=== PATIENT | male | born 1940 | race Caucasian/White ===

== ENCOUNTER 2016-10-16 18:15 | Observation (INO) | payer MEDICARE ==
[2016-10-16 19:14] LABS: Hematocrit 45 % (42-52); Hemoglobin 15.1 g/dl (14.0-18.0); Mean Corpuscular HGB Conc 34 g/dl (31-36); Mean Corpuscular Hemoglobin 32 pg (27-31); Mean Corpuscular Volume 95 fL (80-94); Mean Platelet Volume 7 um3 (7.4-10.4); Red Blood Count 4.69 10^6/ul (4.0-5.4); Red Cell Distribution Width 14 % (10.5-15); White Blood Count 9.3 10^3/ul (3.5-10.8)
[2016-10-16 19:27] LABS: Albumin 3.9 g/dL (3.2-5.2); BUN/Creatinine Ratio 13.6 (8-20); Calcium 8.9 mg/dL (8.6-10.3); EGFR African American 119.8 (>60); EGFR Non-African American 93.2 (>60); Globulin 2.5 g/dL (2-4); Magnesium 1.9 mg/dL (1.9-2.7); Potassium 3.7 mmol/L (3.5-5.0); Total Bilirubin 0.6 mg/dL (0.2-1.0); Total Protein 6.4 g/dL (6.4-8.9)
[2016-10-16 19:32] LABS: Troponin I 0.04 ng/mL (<0.04)
--- NOTE | 2016-10-16 19:57 | RAD ---
INDICATION: Syncope. COMPARISON: There are no prior studies available for comparison. TECHNIQUE: Contiguous axial sections of the brain were obtained from the skull base to the vertex without contrast. FINDINGS: The ventricles, cisterns and sulci are within normal limits. No significant focal abnormality or mass effect is seen. There is no evidence for hemorrhage. No fracture is seen. There is opacification of the left frontal sinus. The visualized portion of the paranasal sinuses and mastoid air cells otherwise appear clear. IMPRESSION: NO EVIDENCE FOR ACUTE INTRACRANIAL ABNORMALITY.
[2016-10-16 20:02] LABS: TSH (Thyroid Stimulating Horm) 1.8 mcIU/mL (0.34-5.60)
[2016-10-16 20:10] LABS: Urine Bilirubin Negative (Negative); Urine Glucose Negative (Negative); Urine Nitrite Negative (Negative)
[2016-10-16] MEDS ORDERED: Acetaminophen TAB* 325 MG PO PRN (20:15)
[2016-10-16] MEDS ORDERED: Melatonin (NF) 3 MG TAB PO PRN (20:18)
[2016-10-16] MEDS ORDERED: Aspirin Low Dose CHEW TAB* 81 MG PO ONE (20:19)
[2016-10-16] MEDS ORDERED: NS 0.9% 1000 ML* 1,000 ML IV SCH (20:30)
[2016-10-16] MEDS ORDERED: Ondansetron INJ* 2 MG/ML VIAL IV PRN (20:40)
--- NOTE | 2016-10-16 20:51 | ED ---
Rain Morin Anna, scribed for Leif Luke MD on 10/16/16 at 1829 . Syncope/Near Syncope - HPI Summary HPI Summary: Patient is a 76 y/o male BIBA to [facility] following the sudden onset of a syncopal episode that occurred at 1730 this evening. The patient had been blowing snow when he took a break and was sitting in a chair. He remembers bending over to try to put spikes on his shoes, and remembers feeling like he wasnt able to move his body like he wanted to. He does not remember falling down, and the incident was unwitnessed. The patient was found on his side on the floor and had slurred, confused speech. His right hand was shaking. The symptoms resolved within 5 minutes. At this point, the patient reports that he feels a little fuzzy. He denies current CP, lightheadedness, or dizziness. A few months ago, he had a stress test and wore a monitor. He reports his balance is decreased when the lights are out and that he has had occasional episodes of limited balance lately. - History Of Current Complaint Time Seen by Provider: 10/16/16 18:27 Hx Obtained From: Patient, Family/Ribbon Blocker - Accompanied by and brother Onset/Duration: Sudden Onset, Resolved Context: Unwitnessed, Loss Of Consciousness Activity At Onset: Other - Bent over in a low chair Associated Head Trauma: No - Allergies/Home Medications Allergies/Adverse Reactions: Allergies Allergy/AdvReac Type Severity Reaction Status Date / Time Iodinated Diagnostic Agents Allergy Hives Verified 10/16/16 20:34 PMH/Surg Hx/FS Hx/Imm Hx Endocrine/Hematology History: Denies: Hx Diabetes Cardiovascular History: Reports: Hx Hypertension Denies: Hx Myocardial Infarction Respiratory History: Denies: Hx Chronic Obstructive Pulmonary Disease (COPD) Infectious Disease History: Denies: Traveled Outside the [place] in Last 30 Days - Family History Known Family History: Positive: Diabetes - Hx Mother, Other - Hx lung CA in mother - Social History Occupation: Retired Lives: With Family Alcohol Use: Daily Alcohol Amount: 2-3 beers/day Hx Substance Use: No Substance Use Type: Reports: None Hx Tobacco Use: Yes Type: Cigarettes Review of Systems Negative: Chest Pain Neurological: Other - Confusion, resolved. Shaking hand, resolved. Now feels "a little fuzzy." Denies lightheadedness, dizziness. Positive: Syncope, Slurred Speech All Other Systems Reviewed And Are Negative: Yes Physical Exam Triage Information Reviewed: Yes Vital Signs On Initial Exam: Temp Pulse Resp BP Pulse Ox 98.9 F 84 19 142/87 97 10/16/16 18:24 10/16/16 18:30 10/16/16 18:30 10/16/16 18:30 10/16/16 18:30 Vital Signs Reviewed: Yes Appearance: Positive: Well-Appearing, No Pain Distress Skin: Positive: Warm, Skin Color Reflects Adequate Perfusion, Dry Head/Face: Positive: Normal Head/Face Inspection Eyes: Positive: Normal ENT: Positive: Normal ENT inspection Neck: Positive: Supple, Nontender Respiratory/Lung Sounds: Positive: Clear to Auscultation, Breath Sounds Present Cardiovascular: Positive: RRR, Other - Right carotid bruit Abdomen Description: Positive: Nontender, Soft Bowel Sounds: Positive: Present Musculoskeletal: Positive: Normal Neurological: Positive: Normal Psychiatric: Positive: Affect/Mood Appropriate Diagnostics - Vital Signs Vital Signs Temp Pulse Resp BP Pulse Ox 10/16/16 19:30 82 18 127/80 96 10/16/16 19:00 80 20 143/87 96 10/16/16 18:52 83 10/16/16 18:30 84 19 142/87 97 10/16/16 18:26 87 20 151/84 97 10/16/16 18:24 98.9 F 82 16 151/84 97 - Laboratory Lab Results: Lab Results 10/16/16 10/16/16 10/16/16 Range/Units 19:00 19:00 19:00 WBC 9.3 (3.5-10.8) 10^3/ul RBC 4.69 (4.0-5.4) 10^6/ul Hgb 15.1 (14.0-18.0) g/dl Hct 45 (42-52) % MCV 95 H (80-94) fL MCH 32 H (27-31) pg MCHC 34 (31-36) g/dl RDW 14 (10.5-15) % Plt Count 225 (150-450) 10^3/ul MPV 7 L (7.4-10.4) um3 Neut % (Auto) 75.1 (38-83) % Lymph % (Auto) 12.8 L (25-47) % [place] % (Auto) 9.6 H (1-9) % Eos % (Auto) 1.4 (0-6) % Baso % (Auto) 1.1 (0-2) % Absolute Neuts (auto) 7.0 (1.5-7.7) 10^3/ul Absolute Lymphs (auto) 1.2 (1.0-4.8) 10^3/ul Absolute Monos (auto) 0.9 H (0-0.8) 10^3/ul Absolute Eos (auto) 0.1 (0-0.6) 10^3/ul Absolute Basos (auto) 0.1 (0-0.2) 10^3/ul Absolute Nucleated RBC 0 10^3/ul Nucleated RBC % 0 Sodium 136 (133-145) mmol/L Potassium 3.7 (3.5-5.0) mmol/L Chloride 105 (101-111) mmol/L Carbon Dioxide 24 (22-32) mmol/L Anion Gap 7 (2-11) mmol/L BUN 11 (6-24) mg/dL Creatinine 0.81 (0.67-1.17) mg/dL Est GFR ( Amer) 119.8 (>60) Est GFR (Non-Af Amer) 93.2 (>60) BUN/Creatinine Ratio 13.6 (8-20) Glucose 82 (70-100) mg/dL Lactic Acid 0.8 (0.5-2.0) mmol/L Calcium 8.9 (8.6-10.3) mg/dL Magnesium 1.9 (1.9-2.7) mg/dL Total Bilirubin 0.60 (0.2-1.0) mg/dL AST 23 (13-39) U/L ALT 26 (7-52) U/L Alkaline Phosphatase 56 (34-104) U/L Troponin I 0.04 H* (<0.04) ng/mL Total Protein 6.4 (6.4-8.9) g/dL Albumin 3.9 (3.2-5.2) g/dL Globulin 2.5 (2-4) g/dL Albumin/Globulin Ratio 1.6 (1-3) TSH 1.80 (0.34-5.60) mcIU/mL Urine Color Urine Appearance Urine pH (5-9) Ur Specific [place] (1.010-1.030) Urine Protein (Negative) Urine Ketones (Negative) Urine Blood (Negative) Urine Nitrate (Negative) Urine Bilirubin (Negative) Urine Urobilinogen (Negative) Ur Leukocyte Esterase (Negative) Urine Glucose (Negative) 10/16/16 Range/Units 20:00 WBC (3.5-10.8) 10^3/ul RBC (4.0-5.4) 10^6/ul Hgb (14.0-18.0) g/dl Hct (42-52) % MCV (80-94) fL MCH (27-31) pg MCHC (31-36) g/dl RDW (10.5-15) % Plt Count (150-450) 10^3/ul MPV (7.4-10.4) um3 Neut % (Auto) (38-83) % Lymph % (Auto) (25-47) % [place] % (Auto) (1-9) % Eos % (Auto) (0-6) % Baso % (Auto) (0-2) % Absolute Neuts (auto) (1.5-7.7) 10^3/ul Absolute Lymphs (auto) (1.0-4.8) 10^3/ul Absolute Monos (auto) (0-0.8) 10^3/ul Absolute Eos (auto) (0-0.6) 10^3/ul Absolute Basos (auto) (0-0.2) 10^3/ul Absolute Nucleated RBC 10^3/ul Nucleated RBC % Sodium (133-145) mmol/L Potassium (3.5-5.0) mmol/L Chloride (101-111) mmol/L Carbon Dioxide (22-32) mmol/L Anion Gap (2-11) mmol/L BUN (6-24) mg/dL Creatinine (0.67-1.17) mg/dL Est GFR ( Amer) (>60) Est GFR (Non-Af Amer) (>60) BUN/Creatinine Ratio (8-20) Glucose (70-100) mg/dL Lactic Acid (0.5-2.0) mmol/L Calcium (8.6-10.3) mg/dL Magnesium (1.9-2.7) mg/dL Total Bilirubin (0.2-1.0) mg/dL AST (13-39) U/L ALT (7-52) U/L Alkaline Phosphatase (34-104) U/L Troponin I (<0.04) ng/mL Total Protein (6.4-8.9) g/dL Albumin (3.2-5.2) g/dL Globulin (2-4) g/dL Albumin/Globulin Ratio (1-3) TSH (0.34-5.60) mcIU/mL Urine Color Yellow Urine Appearance Clear Urine pH 5.0 (5-9) Ur Specific [place] 1.015 (1.010-1.030) Urine Protein Negative (Negative) Urine Ketones 1+ H (Negative) Urine Blood Negative (Negative) Urine Nitrate Negative (Negative) Urine Bilirubin Negative (Negative) Urine Urobilinogen Negative (Negative) Ur Leukocyte Esterase Negative (Negative) Urine Glucose Negative (Negative) Result Diagrams: 10/16/16 19:00 10/16/16 19:00 Lab Statement: Any lab studies that have been ordered have been reviewed, and results considered in the medical decision making process. - CT Brain CT CT Interpretation: No Acute Changes CT Interpretation Completed By: Radiologist - IMPRESSION: NO EVIDENCE FOR ACUTE INTRACRANIAL ABNORMALITY. - EKG 1825 Cardiac Rate: NL - 87 bpm EKG Rhythm: Sinus Rhythm ST Segment: Normal Ectopy: None EKG Interpretation: LVH Re-Evaluation - Re-Evaluation First Eval Re-Evaluation Time: 20:07 Change: Unchanged Comment: Patient confirms that he has had many episodes of being off-balance lately. Discussed results and plan of care with patient and family. Patient and family are agreeable to plan. Course/Dx Course Of Treatment: Mr. Ochoa had a worrisome syncopal episode tonight and , although seemingly stable now, I thing he should be admitted overnight. I am also concerned that he may have vertebral insufficiency and ASCVD. - Diagnoses Provider Diagnoses: Syncope - Physician Notifications Discussed Care Of Patient With: Dr. Cerda (neurologist) at 1908. He recommended the patient have a CT. Dr. Shaw (hospitalist) at 2007. He accepts the patient for admission. - Critical Care Time Critical Care Time: 30-74 min Discharge - Discharge Plan Condition: Stable Disposition: ADMITTED TO [facility] Referrals: Eddie Lopez MD [Primary Care Provider] - The documentation as recorded by the Rain kaiser Anna accurately reflects the service I personally performed and the decisions made by me, Leif Luke MD.
--- NOTE | 2016-10-16 23:19 | HP ---
HISTORY AND PHYSICAL: DATE OF ADMISSION: 10/16/16 PRIMARY CARE PROVIDER: Dr. Lopez. MY ATTENDING PHYSICIAN WHILE IN THE HOSPITAL: Dr. Rafael Shaw* (report being dictated by Dom Topete NP). CHIEF COMPLAINT: Syncope. HISTORY OF PRESENT ILLNESS: Mr. Ochoa is a 76-year-old male patient who is relatively healthy. He has a history of diet-controlled hypertension, hyperlipidemia, follows up also with Dr. Lopez for this. He comes in today stating that he was going outside to snow blow his driveway. He went to lean forward, putting on his boots and that was the last thing he remembers. The next thing he remembers he was upset because there was a group of men from EMS and family standing around him urging him to go to the hospital and he felt that he did not need all these people. He states that prior to this event and after the event, he had no chest pain, he had no shortness of breath, he did not feel lightheaded or dizzy. He states that he again was leaning forward on a chair, putting boots on, the went to go get something and she came back upstairs and found him on the floor, lying on his side. She tried to arouse him. He did not respond initially. He was maybe out for 3 to 4 minutes. The patient's son was summoned and he was trying to speak with his father. At first , he was speaking what the son described as gibberish, he was not making sense. He slowly started coming around and tried making more sense after discussing with the father. At that point, by the time he started making more sense, the EMS was already at the house and the patient was brought in to the hospital. There has been no recent change in medication. In fact, he is not on any medication. Denied having any recent cough, chills, or fevers. Denied having any abdominal pain or any recent nausea or vomiting. The patient was evaluated in the ER, it was noted the troponin was 0.04 and because of the syncopal episode, the hospitalist service was asked to evaluate for admission. PAST MEDICAL HISTORY: Significant for: 1. Hyperlipidemia. 2. Hypertension. 3. Arthritis. PAST SURGICAL HISTORY: He has had an appendectomy and tonsillectomy. HOME MEDICATIONS: Denied. ALLERGIES TO MEDICATIONS: Include IV DYE. FAMILY HISTORY: His mother had adenocarcinoma. Father at the age of 91. SOCIAL HISTORY: He does not smoke. He does drink about 2 beers a day. He exercises almost on a daily basis. Surrogate decision maker is his . REVIEW OF SYSTEMS: There is no documented fever. He denied having any significant weight change. There was no double vision. There is no ear discharge. There is no rhinorrhea. There is no sore throat. No thyroid enlargement. Denies having any chest pain. There is no orthopnea, there is no nocturnal dyspnea. There is no abdominal pain. There was no nausea, no vomiting. No dysuria, no frequency. No loss of consciousness. No pruritus and no skin ulcerations. Review of 14 systems completed, all others negative. PHYSICAL EXAMINATION GENERAL: At this time, Mr. Ochoa is a 76-year-old male patient. He appears well nourished, well developed. He does not appear to be in any acute distress. He is sitting in the ER stretcher. VITAL SIGNS: Reveal blood pressure 127/80, pulse 81, respirations 18, O2 sat 96 %, temperature 98.9. HEENT: Head: Atraumatic, normocephalic. Eyes: EOMs are intact. Sclerae are anicteric and not pale. Throat: Oral mucosa appears to be moist. No oropharyngeal erythema. NECK: Supple. LUNGS: Clear to auscultation bilaterally. No wheezes, rales, or rhonchi. HEART: Sounds S1, S2. Regular rate and rhythm. No murmurs, rubs, or gallops. ABDOMEN: Soft, it was flat, nontender. Bowel sounds present. EXTREMITIES: Pulses were 2+ throughout. He is able to move all 4 extremities with 5/5 strength. NEUROLOGIC: He is awake, he is alert, he is oriented x3. Tongue midline. Supervisor Fertilizer equal. No gross focal deficits. Cranial nerves II through XII were intact. SKIN: Intact. DIAGNOSTIC STUDIES/LAB DATA: Labs today revealed WBC 9.3, RBC 4.69, hemoglobin 15.1, hematocrit 45, platelet count 225. Sodium 136, potassium of 3.7, chloride of 105, bicarb 24, BUN 11, creatinine 0.81, glucose 82, lactate 1.8, calcium 8.9, mag 1.9. Total bili 0.6, AST 23, ALT 26, alk phos 56. Troponin 0.04. Albumin is 3.9. TSH 1.80. Urine showed 1+ ketones. He had a brain CT, which showed no evidence for acute intracranial abnormalities. There was an EKG obtained today. There was no previous EKG for comparison, but it does show a normal sinus rhythm. It looks like he had ST elevation in V1. J -point elevation appears to be in V2. There is no other elevation noted. He had flat T waves in lead III. We have no previous EKGs noted for comparison. Old medical records reviewed. ASSESSMENT AND PLAN: Mr. Ochoa is a 76-year-old male patient coming into the ER today with complaints of a syncopal episode. Hospitalist service was asked to evaluate for admission. He will be admitted under observation status for: 1. Syncope: Etiology is unclear. He did have a workup, I believe, just 4 months ago according to the patient; however, today the episode happened, it seemed to be unprovoked. He was leaning forward. He did have a carotid bruit on exam. I think, at this point, we will go ahead and get an echo, carotid ultrasound, telemetry, orthostatic blood pressures, cycle his troponin. I did put him on a small aspirin, he is not having any chest pain now and we will continue to follow. 2. Hyperlipidemia: Continue lifestyle modifications. 3. Hypertension: We will continue to monitor and continue lifestyle modification for the time being. 4. DVT prophylaxis: He is moderate risk and will be placed on heparin subcu. 5. Code status: He is full code. 6. Fluids, electrolytes, and nutrition: He can have a regular diet. TIME SPENT: On the admission was approximately 60 minutes, greater than half the time was spent [id number] with the patient, other half time was spent implementing the plan. I did discuss the admission plan with my attending, Dr. Shaw; he is in agreement. DOM TOPETE NP CC: Dr. Lopez* [id number]/[facility] #: [id number] MTDD
[2016-10-17 05:41] LABS: Hematocrit 42 % (42-52); Hemoglobin 14.5 g/dl (14.0-18.0); Mean Corpuscular HGB Conc 34 g/dl (31-36); Mean Corpuscular Hemoglobin 33 pg (27-31); Mean Corpuscular Volume 95 fL (80-94); Mean Platelet Volume 8 um3 (7.4-10.4); Red Blood Count 4.47 10^6/ul (4.0-5.4); Red Cell Distribution Width 13 % (10.5-15)
[2016-10-17 05:54] LABS: BUN/Creatinine Ratio 16.3 (8-20); Calcium 8.6 mg/dL (8.6-10.3); EGFR African American 96.2 (>60); EGFR Non-African American 74.8 (>60); Potassium 4.1 mmol/L (3.5-5.0)
[2016-10-17] MEDS ORDERED: Omeprazole CAP* 20 MG PO SCH (06:00)
[2016-10-17] MEDS: Heparin VIAL(*) 5000 UNITS/ML VIAL (FIVE THOUSAND) SUBCUT SCH ×2 (06:03→12:35)
[2016-10-17] MEDS ORDERED: Aspirin Low Dose CHEW TAB* 81 MG PO SCH (09:00)
--- NOTE | 2016-10-17 10:16 | RAD ---
INDICATION: Carotid stenosis COMPARISON: None TECHNIQUE: Transverse and longitudinal scans of the carotid and vertebral arteries were performed with garcia scale, color Doppler, and spectral Doppler imaging. Stenosis criteria is based on flow velocities that correlate with visual internal carotid artery diameter (NASCET criteria) FINDINGS: Right carotid: There is no significant plaque formation there is no spectral broadening. The peak systolic velocity of the internal carotid artery is 67 cm/s and the peak diastolic velocity 25 cm/s. The ICA/CCA ratio is calculated at 0.6. There is no stenosis. Left carotid: There is scant smooth plaque involving the bifurcation. There is no spectral broadening. The peak systolic velocity of the internal carotid artery is 84 cm/s and the peak diastolic velocity 23 cm/s. The ICA/CCA ratio is calculated at 0.7. This corresponds to a less than 50% diameter stenosis. The actual degree of stenosis is closer to 0. Right vertebral: Right vertebral waveforms are normal and the flow is antegrade. Left vertebral: Left vertebral waveforms are normal and the flow is antegrade Other: Incidental bilateral thyroid nodules which could be evaluated with follow-up sonography. IMPRESSION: NO EVIDENCE OF HEMODYNAMICALLY SIGNIFICANT STENOSIS . THERE ARE THYROID NODULES (see above). CPT II Codes: 3100F PQRS
--- NOTE | 2016-10-17 10:39 | ECHO ---
Patient: CARIN ANGLIN [facility] Rec#: [id number] : 1940 Date: 10/17/2016 Age: 76y Height: 167.6 cm / 66.0 in Weight: 74.8 kg / 164.9 lbs Sex: M BSA: 1.8 Room#: 453 Admit Date#: 10/16/2016 Type: Inpatient Referring: Rafael Shaw MD Reading: Genia Ramirez MD Desulfurizer Operator: Maribell Santacruz RN RDCS CC: Eddie Lopez MD Transthoracic Echocardiogram Indication: Syncope BP: 153/87 HR: 62 Rhythm: NSR Findings History: HTN, former smoker, prior testing for syncope in 2016, recent balance issues. Technical Comments: The study is technically limited due to the patient's smoking history. Completed at 0915. Left Ventricle: The left ventricular chamber size is normal. Mild to moderate concentric left ventricular hypertrophy is observed. Global left ventricular wall motion and contractility are within normal limits. There is normal left ventricular systolic function. The estimated ejection fraction is 50-55%. Abnormal left ventricular diastolic filling is observed, consistent with impaired relaxation. Left Atrium: The left atrium is slightly dilated. Right Ventricle: The right ventricular chamber size and systolic function are within normal limits. Right Atrium: The right atrial cavity size is normal. A prominent eustachian valve is noted in the right atrium. Aortic Valve: The aortic valve structure is not well visualized. The aortic valve leaflets are mildly thickened. There is aortic annular calcification. There is mild aortic regurgitation. There is no evidence of aortic stenosis. Mitral Valve: The mitral valve leaflets are mildly thickened. There is a trace of mitral regurgitation. There is no evidence of mitral stenosis. Tricuspid Valve: The tricuspid valve leaflets are normal. There is trace tricuspid regurgitation. Unable to estimate the right ventricular systolic pressure. Pulmonic Valve: The pulmonic valve structure is not well visualized. There is no evidence of pulmonic regurgitation. There is no pulmonic stenosis. Pericardium: There is no significant pericardial effusion. Aorta: There is no dilatation of the ascending aorta. The aortic arch is not well visualized. The aortic root is normal in size. Pulmonary Artery: The main pulmonary artery appears normal. Venous: The venous system is not well visualized. The inferior vena cava is not visualized. Conclusions Mild to moderate concentric left ventricular hypertrophy is observed. Global left ventricular wall motion and contractility are within normal limits. The estimated ejection fraction is 50-55%. Abnormal left ventricular diastolic filling is observed, consistent with impaired relaxation. The right ventricular chamber size and systolic function are within normal limits. There is mild aortic regurgitation with mild sclerosis. There is a trace of mitral regurgitation, mild leaflet thickening. There is trace tricuspid regurgitation. Compared with prior echo of 05/11/16, ventricular and valvular function are stable. Measurements Name Value Normal Range RVDdMajor (2D) 3.6 cm (2.2 - 4.4) RAd ISD 4CH 4.8 cm (3.4 - 4.9) RA (A4C)W 3.4 cm (2.9 - 4.6) IVSd (2D) 1.3 cm (0.6 - 1) LVPWd (2D) 1.3 cm (0.6 - 1) LVIDd (2D) 3.9 cm (3.6 - 5.4) LVIDs (2D) 3.2 cm - LV FS (2D) 19 % (25 - 45) Aortic Annulus 2.2 cm (1.4 - 2.6) Ao root diameter (2D) 3 cm (2.1 - 3.5) Ascending Ao 2.8 cm (2.1 - 3.4) Aortic arch 2.9 cm (1.8 - 3.4) LA dimension (AP) 2D 3.2 cm (2.3 - 3.8) LAd ISD 4CH 5.4 cm (2.9 - 5.3) LA ISD 4CH W 4.9 cm (2.5 - 4.5) Name Value Normal Range LA ESV SP 4CH (A/L) 59 ml - LA ESV SP 2CH (A/L) 54 ml - LA ESV BP (A/L) 58 ml - LA ESV BP (A/L) index 32 ml/m2 - LA ESV SP 4CH (MOD) 54 ml - LA ESV SP 2CH (MOD) 52 ml - Name Value Normal Range MV E-wave Vmax 0.52 m/sec - MV deceleration time 278 msec - MV A-wave Vmax 0.83 m/sec - MV E:A ratio 0.6 ratio - LV septal e' Vmax 0.07 m/sec - LV lateral e' Vmax 0.08 m/sec - LV E:e' septal ratio 7.4 ratio - LV E:e' lateral ratio 6.5 ratio - Name Value Normal Range AV Vmax 1.2 m/sec - LVOT Vmax 0.68 m/sec - JOSE Vmax 0.8 m/sec - Name Value Normal Range PV Vmax 0.82 m/sec -
--- NOTE | 2016-10-17 11:49 | PN ---
Subjective - Subjective Reason for Note: Discharge Note History: DISCHARGE SUMMARY I obtained the history from the patient, his and son. He had used a self- propelled snowblower earlier yesterday and after 3 - 4 hours was preparing to go outside again. He was fully dressed for severe winter weather - including a hat, thermal clothing. He was putting on his Yak tracks sitting in a low chair. He lost consciousness and fell to the ground. His clothing provided padding. His found him and the episode lasted 15 mins. She states that she could rouse him, but he didn't make any sense. His son spoke to him twice on the phone by 2 minutes - the first time incoherent, the second normal. He woke up when the EMT arrived. He denies both retrograde and anterograde amnesia. He has no incontinence and was not observed having tonic clonic convulsions. He doesn't remember any preceding nausea, palpitations, sweating, flushing, light headedness or other prodromal symptoms. Afterwards, he didn't feel abnormal either. he has had no headache or other residual symptoms. He has had no chest pain, palpitations since. Telemetry has been normal sinus rhythm throughout. He had another similar episode in the fall and this was thoroughly investigated by Dr. Perez. In particular, he had a stress test and an echocardiogram. He was given a clean cardiac report. He has had no intercurrent illnesses and feels very well. He would like to go home. Active Problems: Active Problems Syncope (Acute) R55 Troponin I above reference range (Acute) R74.8 Hyperlipidemia (Chronic) E78.5 Hypertension (Chronic) I10 Current Medications: Current Medications Acetaminophen (Tylenol Tab*) 650 mg PO Q6H PRN PRN Reason: FEVER/PAIN Aspirin (Aspirin Low Dose Tab*) 81 mg PO DAILY [facility] Last Admin: 10/17/16 08:34 Dose: 81 mg Heparin Sodium (Porcine) (Heparin Vial(*)) 5,000 units SUBCUT Q8HR [facility] Last Admin: 10/17/16 06:03 Dose: Not Given Sodium Chloride (Ns 0.9% 1000 Ml*) 1,000 mls @ 75 mls/hr IV PER RATE [facility] Last Admin: 10/17/16 06:52 Dose: 75 mls/hr Melatonin (Melatonin (Nf)) 3 mg PO BEDTIME PRN; Protocol PRN Reason: Sleep Omeprazole (Prilosec Cap*) 20 mg PO DAILY@0600 [facility] Last Admin: 10/17/16 06:04 Dose: Not Given Ondansetron HCl (Zofran Inj*) 4 mg IV Q6H PRN PRN Reason: NAUSEA Home Medications: Home Medications Medication Instructions Recorded Confirmed Type Aspirin Low Dose CHEW TAB* 81 mg PO DAILY #0 tab.chew 10/17/16 Rx [Aspirin Low Dose TAB*] Melatonin (NF) 3 mg PO BEDTIME PRN #0 tab 10/17/16 Rx Omeprazole CAP* [Prilosec CAP* 20 20 mg PO DAILY@0600 cap. 10/17/16 Rx MG] Allergies: Allergies Allergy/AdvReac Type Severity Reaction Status Date / Time Iodinated Diagnostic Agents Allergy Hives Verified 10/16/16 20:34 Objective - Vital Signs Vital Signs: Vital Signs 10/16/16 10/16/16 10/16/16 21:13 21:33 22:45 Temperature 98.4 F 97.5 F Pulse Rate 89 98 87 Respiratory 24 16 22 Rate Blood Pressure 156/88 156/80 (mmHg) O2 Sat by Pulse 96 98 98 Oximetry 10/17/16 10/17/16 10/17/16 03:13 07:53 09:17 Temperature 98.3 F 98.5 F Pulse Rate 71 67 72 Respiratory 16 18 Rate Blood Pressure 153/87 134/71 140/88 (mmHg) O2 Sat by Pulse 97 96 Oximetry 10/17/16 09:41 Temperature Pulse Rate Respiratory Rate Blood Pressure (mmHg) O2 Sat by Pulse 97 Oximetry - Intake and Output Intake and Output: Intake & Output 10/14/16 10/15/16 10/16/16 10/17/16 11:59 11:59 11:59 11:59 Intake Total 0 Balance 0 Weight 165 lb 12.8 oz Intake: Oral 0 ADLs: Meal Record Start: 10/16/16 21: 16 Freq: DAILY@0900,1400,1800 Status: Inactive Created 10/16/16 21:16 System (Rec: 10/16/16 21:16 System [id number]) ADLs: Meal Record Start: 10/16/16 23: 24 Freq: DAILY@0900,1400,1800 Status: Active Created 10/16/16 23:24 [id number] (Rec: 10/16/16 23:24 [id number]) Document 10/17/16 09:22 [id number] (Rec: 10/17/16 09:22 [id number] [id number]) Intake and Output Start: 10/16/16 21: 16 Freq: DAILY@0600,1400,2200 Status: Inactive Created 10/16/16 21:16 System (Rec: 10/16/16 21:16 System [id number]) Intake and Output Start: 10/16/16 23: 24 Freq: DAILY@0600,1400,2200 Status: Active Created 10/16/16 23:24 [id number] (Rec: 10/16/16 23:24 [id number] TELE-C11) Document 10/17/16 04:58 [id number] (Rec: 10/17/16 04:59 [id number]) - Physical Exam General: No Cyanosis, No Anemia, No Jaundice, No Clubbing Eye Exam: bilateral: EOMI, Vision Field - normal Skin: Normal: Rash Thyroid Function: Clinically Euthyroid -: No Goiter, No Thyroid Nodule Lungs and Chest: Yes: Chest Expansion Full, Chest Expansion Symetrica, Percussion Note Resonant, Vessicular Breath Sounds. No: Crackles, Wheezes, Respiratory Distress, Use of Accessory Muscles Heart Rate and Rhythm: Regular JVP: Not Elevated Additional Cardiovascular: Yes: Normal Heart Sounds. No: Heart Murmur, Carotid Bruits, Pedal Edema Abdominal Exam: Yes: Soft, Bowel Sounds Present. No: Distention, Abdominal Mass , Hepatomegaly, Abdominal Tenderness - Extremities Cranial Nerves II-XII Intact: Yes Limbs: Normal Power, Normal Tone, Normal Coordination, Normal Sensation, Normal Gait - Neuro Orientation: A/O x3 Psychiatric: Normal Speech: Normal Results - Results Lab Results: Laboratory Results - last 24 hr 10/16/16 10/17/16 10/17/16 21:49 01:39 05:32 WBC 7.0 RBC 4.47 Hgb 14.5 Hct 42 MCV 95 H MCH 33 H MCHC 34 RDW 13 Plt Count 225 MPV 8 Neut % (Auto) 68.5 Lymph % (Auto) 17.0 L Smith % (Auto) 11.6 H Eos % (Auto) 2.1 Baso % (Auto) 0.8 Absolute Neuts (auto) 4.8 Absolute Lymphs (auto) 1.2 Absolute Monos (auto) 0.8 Absolute Eos (auto) 0.1 Absolute Basos (auto) 0.1 Absolute Nucleated RBC 0 Nucleated RBC % 0 INR (Anticoag Therapy) Sodium Potassium Chloride Carbon Dioxide Anion Gap BUN Creatinine Est GFR ( Amer) Est GFR (Non-Af Amer) BUN/Creatinine Ratio Glucose Calcium Troponin I 0.04 H* 0.05 H* 10/17/16 10/17/16 05:32 05:32 WBC RBC Hgb Hct MCV MCH MCHC RDW Plt Count MPV Neut % (Auto) Lymph % (Auto) Smith % (Auto) Eos % (Auto) Baso % (Auto) Absolute Neuts (auto) Absolute Lymphs (auto) Absolute Monos (auto) Absolute Eos (auto) Absolute Basos (auto) Absolute Nucleated RBC Nucleated RBC % INR (Anticoag Therapy) 0.95 Sodium 136 Potassium 4.1 Chloride 105 Carbon Dioxide 25 Anion Gap 6 BUN 16 Creatinine 0.98 Est GFR ( Amer) 96.2 Est GFR (Non-Af Amer) 74.8 BUN/Creatinine Ratio 16.3 Glucose 113 H Calcium 8.6 Troponin I Radiology Results: Patient Name: CARIN ANGLIN Medical Record#: [id number] Ordering Physician: Leif Luke MD Acct.#: [id number] : 1940 Age: 76 Sex: M Location: EMERGENCY DEPARTMENT Exam Date: 10/16/161910 ADM Status: REG ER Order Information: CT BRAIN WO Accession Number: [id number] CPT: 58877 INDICATION: Syncope. COMPARISON: There are no prior studies available for comparison. TECHNIQUE: Contiguous axial sections of the brain were obtained from the skull base to the vertex without contrast. FINDINGS: The ventricles, cisterns and sulci are within normal limits. No significant focal abnormality or mass effect is seen. There is no evidence for hemorrhage. No fracture is seen. There is opacification of the left frontal sinus. The visualized portion of the paranasal sinuses and mastoid air cells otherwise appear clear. IMPRESSION: NO EVIDENCE FOR ACUTE INTRACRANIAL ABNORMALITY. <Electronically signed by Omar Ivory MD in [place]> 10/16/161952 Dictated By: Omar Ivory MD Dictated Date/Time: 10/16/161952 Transcribed Date/Time: 10/16/161944 Copy to: CC:Eddie Lopez MD; Leif Luke MD Imaging - [facility] Imaging - [facility] Imaging - [facility] [id number] [place] [id number] [place] [address] ph ([phone]) ph ([phone]) ph ([phone]) Patient Name: CARIN ANGLIN Ordering Physician: Rafael Shaw MD Acct.#: [id number] : 1940 Age: 76 Sex: M Location: [address] [place] [address] MEDICAL/TELEMETRY Exam Date: 10/17/16 0800 ADM Status: ADM Sawyer Order Information: VL CAROTID BILATERAL Accession Number: [id number] CPT: 23510 INDICATION: Carotid stenosis COMPARISON: None TECHNIQUE: Transverse and longitudinal scans of the carotid and vertebral arteries were performed with garcia scale, color Doppler, and spectral Doppler imaging. Stenosis criteria is based on flow velocities that correlate with visual internal carotid artery diameter (NASCET criteria) FINDINGS: Right carotid: There is no significant plaque formation there is no spectral broadening. The peak systolic velocity of the internal carotid artery is 67 cm/ s and the peak diastolic velocity 25 cm/s. The ICA/CCA ratio is calculated at 0.6. There is no stenosis. Left carotid: There is scant smooth plaque involving the bifurcation. There is no spectral broadening. The peak systolic velocity of the internal carotid artery is 84 cm/ s and the peak diastolic velocity 23 cm/s. The ICA/CCA ratio is calculated at 0.7. This corresponds to a less than 50% diameter stenosis. The actual degree of stenosis is closer to 0. Right vertebral: Right vertebral waveforms are normal and the flow is antegrade. Left vertebral: Left vertebral waveforms are normal and the flow is antegrade Other: Incidental bilateral thyroid nodules which could be evaluated with follow -up sonography. IMPRESSION: NO EVIDENCE OF HEMODYNAMICALLY SIGNIFICANT STENOSIS . THERE ARE THYROID NODULES (see above). CPT II Codes: 3100F PQRS <Electronically signed by Selvin Lizama MD in [place]> 10/17/16 1013 Dictated By: Selvin Lizama MD Dictated Date/Time: 10/17/16 1013 Transcribed Date/Time: 10/17/16 1007 Copy to: CC:Eddie Lopez MD; Franco Cerda MD; Rafael Shaw MD Imaging - [facility] [address] [address] ph ([phone]) ph ( [phone]) ph ([phone]) 1 of 1 EKG Report: 59 MI 14 QRS D 89 QTc 416 QRS axis -20. Normal sinus bradycardia = LVH Other Results/Reports: Patient: CARIN ANGLIN [facility] Rec#: [id number] : 1940 Date: 10/17/2016 Age: 76y Height: 167.6 cm / 66.0 in Weight: 74.8 kg / 164.9 lbs Sex: M BSA: 1.8 Room#: 453 Admit Date#: 10/16/2016 Type: Inpatient Referring: Rafael Shaw MD Reading: Genia Ramirez MD Engine Emission Technician: Maribell Santacruz RN RDCS CC: Eddie Lopez MD Transthoracic Echocardiogram Indication: Syncope BP: 153/87 HR: 62 Rhythm: NSR Findings History: HTN, former smoker, prior testing for syncope in 2016, recent balance issues. Technical Comments: The study is technically limited due to the patient's smoking history. Completed at 0915. Left Ventricle: The left ventricular chamber size is normal. Mild to moderate concentric left ventricular hypertrophy is observed. Global left ventricular wall motion and contractility are within normal limits. There is normal left ventricular systolic function. The estimated ejection fraction is 50-55%. Abnormal left ventricular diastolic filling is observed, consistent with impaired relaxation. Left Atrium: The left atrium is slightly dilated. Right Ventricle: The right ventricular chamber size and systolic function are within normal limits. Right Atrium: The right atrial cavity size is normal. A prominent eustachian valve is noted in the right atrium. Aortic Valve: The aortic valve structure is not well visualized. The aortic valve leaflets are mildly thickened. There is aortic annular calcification. There is mild aortic regurgitation. There is no evidence of aortic stenosis. Mitral Valve: The mitral valve leaflets are mildly thickened. There is a trace of mitral regurgitation. There is no evidence of mitral stenosis. Tricuspid Valve: The tricuspid valve leaflets are normal. There is trace tricuspid regurgitation. Unable to estimate the right ventricular systolic pressure. Pulmonic Valve: The pulmonic valve structure is not well visualized. There is no evidence of pulmonic regurgitation. There is no pulmonic stenosis. Pericardium: There is no significant pericardial effusion. Aorta: There is no dilatation of the ascending aorta. The aortic arch is not well visualized. The aortic root is normal in size. Pulmonary Artery: The main pulmonary artery appears normal. Venous: The venous system is not well visualized. The inferior vena cava is not visualized. Conclusions Mild to moderate concentric left ventricular hypertrophy is observed. Global left ventricular wall motion and contractility are within normal limits. The estimated ejection fraction is 50-55%. Abnormal left ventricular diastolic filling is observed, consistent with impaired relaxation. The right ventricular chamber size and systolic function are within normal limits. There is mild aortic regurgitation with mild sclerosis. There is a trace of mitral regurgitation, mild leaflet thickening. There is trace tricuspid regurgitation. Compared with prior echo of 05/11/16, ventricular and valvular function are stable. Measurements Name Value Normal Range RVDdMajor (2D) 3.6 cm (2.2 - 4.4) RAd ISD 4CH 4.8 cm (3.4 - 4.9) RA (A4C)W 3.4 cm (2.9 - 4.6) IVSd (2D) 1.3 cm (0.6 - 1) LVPWd (2D) 1.3 cm (0.6 - 1) LVIDd (2D) 3.9 cm (3.6 - 5.4) LVIDs (2D) 3.2 cm - LV FS (2D) 19 % (25 - 45) Aortic Annulus 2.2 cm (1.4 - 2.6) Ao root diameter (2D) 3 cm (2.1 - 3.5) Ascending Ao 2.8 cm (2.1 - 3.4) Aortic arch 2.9 cm (1.8 - 3.4) LA dimension (AP) 2D 3.2 cm (2.3 - 3.8) LAd ISD 4CH 5.4 cm (2.9 - 5.3) LA ISD 4CH W 4.9 cm (2.5 - 4.5) Name Value Normal Range LA ESV SP 4CH (A/L) 59 ml - LA ESV SP 2CH (A/L) 54 ml - LA ESV BP (A/L) 58 ml - LA ESV BP (A/L) index 32 ml/m2 - LA ESV SP 4CH (MOD) 54 ml - LA ESV SP 2CH (MOD) 52 ml - Name Value Normal Range MV E-wave Vmax 0.52 m/sec - MV deceleration time 278 msec - MV A-wave Vmax 0.83 m/sec - MV E:A ratio 0.6 ratio - LV septal e' Vmax 0.07 m/sec - LV lateral e' Vmax 0.08 m/sec - LV E:e' septal ratio 7.4 ratio - LV E:e' lateral ratio 6.5 ratio - Name Value Normal Range AV Vmax 1.2 m/sec - LVOT Vmax 0.68 m/sec - JOSE Vmax 0.8 m/sec - Name Value Normal Range PV Vmax 0.82 m/sec - Assessment - Problem List Assessment: Patient Problems Syncope (Acute) Troponin I above reference range (Acute) Hyperlipidemia (Chronic) Hypertension (Chronic) Plan: Syncope (Acute) This is the second episode. The circumstances sound like a set up for vasovagal attack - he was wearing over-warm clothing, bent down to put on Yak Tracks and the sat back up again. However, not to create premature closure on this diagnosis, I will entertain the following possibilities: * Seizure (complex partial/absence attack) - EEG pending - this [place] [facility] [place] TIA - his CT scan showed no hemorrhage or large lesion. He has no residual neurological problems. This might be vertebro-basilar. The carotid duplex looks fine - both vertebral arteries show anterograde flow * Cardiac dysrhythmia - we have seen nothing abnormal on his 12 lead EKG or on telemetry overnight. I think that this deserves an outpatient event monitor in case of a rare event. * Ischemic cardiac event - he had a normal stress test June 2017 - I doubt this possibility. However, I will copy this to Dr. Perez and I have instructed him to make another appt with Dr. Perez Troponin I above reference range (Acute) The troponin I levels are in the low indeterminant level - I have a low suspicion of an ischemic event - no compatible history, symptoms and a normal EKG Hyperlipidemia (Chronic) secondary diagnosis Hypertension (Chronic) secondary diagnosis I spoke to the patient and his family. He wants to go home. I have agreed to discharge him with a follow up with Dr. Perez. I will copy this note to Dr. Perez. If he has any problems, he will let me know. I have told him not to engage in vigorous activity such as snow blowing until he is cleared by cardiology. He will follow with me next week as an outpatient. I have suggested he starts aspirin 81 mg qdaily.
[2016-10-17 12:39] VITALS: BP 135/38
--- NOTE | 2016-10-18 01:40 | EEG ---
ELECTROENCEPHALOGRAPHY: DATE OF STUDY: DATE OF DICTATION: 10/17/16 - ROOM #453 PATIENT OF: Dr. Lopez. CLINICAL PROBLEM: This is a 76-year-old man being evaluated for a syncopal episode while shoveling snow yesterday. Afterwards, he had some slurring and confused speech, possibly some tremor in his right hand. MEDICATIONS: Include: 1. Aspirin. 2. Heparin. 3. Prilosec. 4. Melatonin. 5. Zofran. REPORT: With the patient awake, background cerebral activity consists of moderate amplitude posterior dominant 10 Hz rhythm, which attenuates with eye opening and reappears with eye closure. At times, the patient becomes drowsy with slowing into the theta range, but the patient never falls fully asleep. On occasion, there is left frontal sharply contoured alpha range frequencies. At one point, there is some eye artifact in this area. The patient never falls fully asleep. CLINICAL IMPRESSION: This awake and drowsy EEG showed some sharp activity in the left frontal region in an area where there is some artifact, but some of the activity is suspicious for either underlying structural lesion or possible tendency towards seizures. Clinical correlation is recommended. [id number] #: [id number] MTDD
== END 2016-10-17 12:45 | disposition home or self-care (01) ==
LOC: ED 18:15 → MEDTELE 20:08
PROVIDERS: ADMIT Hospitalist; ATTEND Internal Medicine
DX: R85.5 Abnormal microbiological findings in specimens from digestive organs and abdominal cavity (principal); I10 Essential (primary) hypertension; E78.5 Hyperlipidemia, unspecified; M19.90 Unspecified osteoarthritis, unspecified site; E04.1 Nontoxic single thyroid nodule; R00.1 Bradycardia, unspecified; I51.7 Cardiomegaly; R94.8 Abnormal results of function studies of other organs and systems; Z79.82 Long term (current) use of aspirin; Z79.899 Other long term (current) drug therapy
CPT/HCPCS: 36415; 70450; 80048; 80053; 81003; 83605; 83735; 84443; 84484; 85025; 85610; 87641; 93005; 93306; 93880; 95819; 96360; 96361; 99283; A9270-GY; G0378; J1644